=== PATIENT | female | born 1960 | race Caucasian/White ===

== ENCOUNTER 2017-05-15 12:42 | Emergency (ER) | payer MEDICAID ==
[~2017-05-15] VITALS: Ht 172.7 cm; Wt 75.0 kg
[2017-05-15 12:45] VITALS: BP 162/74; PULSE 93; RESP 16; TEMP 97.5; O2SAT 96
[2017-05-15] MEDS ORDERED: VAGI10TA VAGINAL (12:58)
[2017-05-15] MEDS ORDERED: predniSONE 20 MG TAB PO ONE (13:15)
[2017-05-15] MEDS ORDERED: PRED20 PO (13:22)
--- NOTE | 2017-05-15 13:22 | PD ---
HPI Chief Complaint: Skin Problem Time Seen by Provider: 12:55 Travel History International Travel<30 days: No Contact w/Intl Traveler<30days: No Traveled to known affect area: No History of Present Illness HPI The patient is a 56-year-old female who presents emergency department for medication reaction. The patient has been seen by [facility] for recent skin check, was noted to have some precancerous skin lesions in the upper chest and lower neck area. The patient was prescribed flourouceil cream. The patient was applying the cream to the affected area, then developed some redness over the affected area. The patient took a picture of the reaction assented to her box spring frame builder who prescribed a steroid cream to apply over the affected area. The patient states the affected area now has some drainage from the affected area with sloughing of the skin and particular smell. The patient also notes a small amount of bleeding from the affected area. She denies any associated fever. Symptoms are moderate. PFSH Past Medical History Medical History: Denies Significant Hx Past Surgical History Surgical History: No Previous Surgery Social History Alcohol Use: Yes (daily) Tobacco Use: No Substance Use: No Allergies-Medications (Allergen,Severity, Reaction): Coded Allergies: No Known Allergies (Verified Allergy, Unknown, 05/15/17) Reported Meds & Prescriptions Reported Meds & Active Scripts Active Reported Vagifem Vaginal (Estradiol Vaginal) 10 Mcg Vagtab 10 Mcg VAGINAL 2XWEEK Review of Systems Except as stated in HPI: all other systems reviewed are Neg Skin: Positive Rash, Positive Itching, Positive Other Physical Exam Narrative GENERAL: Awake, alert, pleasant 56-year-old female who appears her stated age is in no acute respiratory distress. SKIN: Patient has a skin reaction to the upper chest wall or neck area that is and a circular collar formation with erythema and sloughing of the skin, appears to be superficial second-degree type ibrahim/skin reaction. HEAD: Atraumatic. Normocephalic. EYES: Pupils equal and round. No scleral icterus. No injection or drainage. MUSCULOSKELETAL: No obvious deformities. No clubbing. No cyanosis. No edema. NEUROLOGICAL: Awake and alert. No obvious cranial nerve deficits. Motor grossly within normal limits. Normal speech. PSYCHIATRIC: Appropriate mood and affect; insight and judgment normal. Data Data Last Documented VS Vital Signs Date Time Temp Pulse Resp B/P (MAP) Pulse Ox O2 Delivery O2 Flow Rate FiO2 05/15/17 12:45 97.5 93 16 162/74 (103) 96 Orders Orders Prednisone (Deltasone) (05/15/17 13:15) [facility] Medical Decision Making Medical Screen Exam Complete: Yes Emergency Medical Condition: Yes Medical Record Reviewed: Yes Differential Diagnosis Differential diagnosis includes medication reaction, first-degree burn, second- degree burn, allergic reaction. Narrative Course The patient appears to have had a medication reaction secondary to the skin cream resulting in a superficial second-degree type burn. The patient will be placed on steroids is advised to follow-up with her box spring frame builder this week. Diagnosis Primary Impression: Medication reaction Qualified Codes: T88.7XXA - Unspecified adverse effect of drug or medicament, initial encounter Patient Instructions: General Instructions Additional Instructions: Clean the area twice a day with Don soap and water. Monitor for signs of infection. Prednisone as directed. Follow-up with her box spring frame builder this week. Med/Other Pt SpecificInfo: Prescription(s) given Scripts Prednisone (Prednisone) 20 Mg Tab 40 MG PO DAILY for 4 Days, #8 TAB 0 Refills Take 40 mg (2 tablets) daily for 5 days Prov: Byron Perez MD 05/15/17 Disposition: 01 DISCHARGE HOME Condition: Stable Byron Perez MD May 15, 2017 13:22
== END 2017-05-15 14:02 | disposition home or self-care (01) ==
LOC: NEPD 12:42
DX: L23.3 Allergic contact dermatitis due to drugs in contact with skin (principal); T45.1X5A Adverse effect of antineoplastic and immunosuppressive drugs, initial encounter
CPT/HCPCS: 99283; J7512